=== PATIENT | male | born 1970 ===

== ENCOUNTER 2018-06-17 09:45 | Observation (INO) | payer OTHER, MEDICAID ==
[2018-06-17] MEDS ORDERED: Oxycodone/Acetaminophen 5/325 mg Tab PO STA (10:05)
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
[2018-06-17 15:02] LABS: BLOOD UREA NITROGEN 14 mg/dL (7-21); GFR NON-AFRICAN AMERICAN > 60
[2018-06-17] MEDS ORDERED: Gadodiamide 287 MG/ML VIAL (15ML) IV ONE (16:56)
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
[2018-06-17 22:47] VITALS: BMI 28.5
[2018-06-18] MEDS ORDERED: ADALIMUMAB 40 MG SQ ONE (01:30)
[2018-06-18] MEDS: Dexamethasone 4 mg/1 ml IVP SCH ×2 (01:39→07:53)
[2018-06-18 03:50] LABS: ALB/GLOB RATIO 1.2 (1.1-1.8); ALBUMIN 4.4 g/dL (3.0-4.8); ALT/SGPT 40 U/L (7-56); AST/SGOT 31 U/L (17-59); BLOOD UREA NITROGEN 13 mg/dL (7-21); CALCIUM 9.4 mg/dL (8.4-10.5); GFR NON-AFRICAN AMERICAN > 60
[2018-06-18 03:51] LABS: BASO # 0.01 K/mm3 (0.0-2.0); BASO % 0.1 % (0.0-3.0); GRAN # 6.98 (1.4-6.5); GRAN % 84.6 % (50.0-68.0); HEMOGLOBIN 15.5 g/dL (14.0-18.0); LYMPH # 1.2 (1.2-3.4); LYMPH % 14.7 % (22.0-35.0); MEAN CELL VOLUME 86.8 fl (80.0-105.0); MEAN CORPUSCULAR HEMOGLOBIN 30.1 pg (25.0-35.0); MEAN CORPUSCULAR HGB CONC 34.7 g/dl (31.0-37.0); MEAN PLATELET VOLUME 10.2 fl (7.0-11.0); MONO # 0.1 (0.1-0.6); MONO % 0.6 % (1.0-6.0); RBC 5.15 10^6/uL (3.5-6.1); WHITE BLOOD COUNT 8.3 10^3/uL (4.5-11.0)
[2018-06-18 03:57] LABS: TROPONIN I < 0.01 ng/mL
--- NOTE | 2018-06-18 06:48 | CP.PCM.PCO ---
Physician Communication Note - Physician Communication Note Physician Communication Note: Patient evaluated Addendum Addendum: 06/18/18 06:40 Resident was notified patient was experiencing previous neurologic symptoms on and off while on the floor; Evaluated at bedside w/ no acute findings. Of note patient was out of C-Collar; when asked why he removed the collar, he reported that he felt more relief out of the collar. Patient was medically advised that he remain in his collar until he was cleared by neurosurgery. The patient was told that he is risking paralysis and by removing the collar without appropriate clearance.
[2018-06-18 07:50] VITALS: BP 112/78; PULSE 69; RESP 19; TEMP 98.1; O2SAT 96
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
== END 2018-06-18 17:27 | disposition home or self-care (01) ==
LOC: ED 09:45 → ERH 19:37 → 3RNO 22:29
PROVIDERS: ADMIT Internal Medicine; ATTEND Internal Medicine
DX: S13.4XXA Sprain of ligaments of cervical spine, initial encounter (principal); V43.52XA Car driver injured in collision with other type car in traffic accident, initial encounter; S09.90XA Unspecified injury of head, initial encounter; M06.9 Rheumatoid arthritis, unspecified; L40.50 Arthropathic psoriasis, unspecified; M54.16 Radiculopathy, lumbar region; M48.02 Spinal stenosis, cervical region; Y92.410 Unspecified street and highway as the place of occurrence of the external cause
CPT/HCPCS: 36415; 70450; 72125; 72128; 72156; 72157; 80048; 80053; 83735; 84100; 84484; 85025; 96374; 97161; A9579; G0378; G8978; G8979; G8980; J1100